=== PATIENT | male | born 1995 | race Caucasian/White ===

== ENCOUNTER → 2017-05-25 | Emergency (ER) | payer SELFPAY ==
[~2017-05-25] VITALS: Ht 182.9 cm; Wt 98.0 kg
[2017-05-25 08:47] VITALS: Ht 182.9 cm; Wt 98.0 kg
== END | disposition left against medical advice (07) ==
LOC: FTE 08:43
DX: Z53.21 Procedure and treatment not carried out due to patient leaving prior to being seen by health care provider (principal)